=== PATIENT | male | born 1975 | race Caucasian/White ===

== ENCOUNTER 2016-12-07 22:38 | Emergency (ER) | payer OTHER ==
[~2016-12-07] VITALS: Ht 167.6 cm; Wt 52.2 kg
[2016-12-07] MEDS ORDERED: ASPIRIN 81 MG TAB.CHEW PO ONE (23:00)
[2016-12-07] MEDS ORDERED: ASPIRIN 81 MG TAB.CHEW ONE (23:13)
[2016-12-07 23:29] LABS: CALCIUM 8.9 mg/dL (8.5-10.1); CREATININE 0.9 mg/dL (0.6-1.3); EOSINOPHILS # (AUTO) 0.2 K/uL (0.0-0.7); LYMPHOCYTES # (AUTO) 1.1 K/uL (20.0-40.0); MONOCYTES # (AUTO) 0.8 K/uL (2.0-10.0); POTASSIUM 3.6 mmol/L (3.5-5.1)
[2016-12-07] MEDS ORDERED: GUAIFENESIN/CODEINE 5 ML LIQUID UDC PO ONE (23:30)
[2016-12-07] MEDS ORDERED: ACETAMINOPHEN ES 500 MG TABLET PO ONE (23:30)
[2016-12-07 23:39] LABS: LYMPHOCYTES % (AUTO) 8.7 % (20.5-51.5)
[2016-12-07] MEDS ORDERED: GUAIFENESIN/CODEINE 5 ML LIQUID UDC ONE (23:39)
[2016-12-07] MEDS ORDERED: ACETAMINOPHEN ES 500 MG TABLET ONE (23:39)
[2016-12-07 23:40] LABS: BASOPHILS % (AUTO) 0.4 % (0.0-2.0); EOSINOPHILS % (AUTO) 1.6 % (0.0-7.0); HEMATOCRIT 36.7 % (36.7-47.1); HEMOGLOBIN 13.2 g/dL (12.5-16.3); MEAN CORPUSCULAR HEMOGLOBIN 34.5 uug (23.8-33.4); MEAN CORPUSCULAR HGB CONC 36 g/dL (32.5-36.3); MEAN CORPUSCULAR VOLUME 95.8 fL (73.0-96.2); MONOCYTES % (AUTO) 6.3 % (0.0-11.0); NEUTROPHILS # (AUTO) 10.3 K/uL (1.8-8.9); PLATELET COUNT (AUTO) 218 K/uL (152-348); RED BLOOD CELL COUNT(AUTO) 3.83 MIL/uL (4.06-5.63); RED CELL DISTRIBUTION WIDTH 11.9 % (12.1-16.2); WHITE BLOOD COUNT (AUTO) 12.4 K/uL (3.6-10.2)
[2016-12-07 23:42] LABS: ALBUMIN 3.7 g/dL (3.4-5.0); BILIRUBIN,DIRECT 0.2 mg/dL (0.0-0.2); TOTAL PROTEIN, SERUM 6.8 g/dL (6.4-8.2)
[2016-12-07 23:43] LABS: BAND % (MANUAL) 1 % (0-10); EOSINOPHILS % (MANUAL) 2 % (0-8); LYMPHOCYTES % (MANUAL) 7 % (20-40); MONOCYTES % (MANUAL) 8 % (2-10); NEUTROPHILS % (MANUAL) 82 % (42-75)
[2016-12-07 23:44] LABS: PLATELET ESTIMATE ADEQUATE
[2016-12-08] MEDS ORDERED: predniSONE 20 MG TABLET PO ONE (00:45)
[2016-12-08] MEDS ORDERED: IV NORMAL SALINE 1000 ML BAG IV ONE (00:45)
[2016-12-08] MEDS ORDERED: AZITHROMYCIN 250 MG TABLET PO ONE (00:45)
[2016-12-08] MEDS ORDERED: predniSONE 10 MG TABLET ONE (00:58)
[2016-12-08] MEDS ORDERED: predniSONE 50 MG TABLET ONE (00:58)
[2016-12-08] MEDS ORDERED: AZITHROMYCIN 250 MG TABLET ONE (00:58)
--- NOTE | 2016-12-08 02:42 | NUR ---
IV removed. Catheter intact and site benign. Pressure and 4x4 gauze applied to site. No bleeding noted.
[2016-12-08 02:45] VITALS: BP 107/75
--- NOTE | 2016-12-08 02:46 | NUR ---
Patient discharged to home in stable conditon with taking pt home. Written and verbal after care instructions given. Patient verbalizes understanding of instructions. Walked out of ER with steady gait
== END 2016-12-08 02:46 | disposition home or self-care (01) ==
LOC: ER 22:40
DX: R07.9 Chest pain, unspecified (principal); R05 Cough; J40 Bronchitis, not specified as acute or chronic
CPT/HCPCS: 36415; 70030-TC; 71010; 84703; 85025; 93005; A4663; J7030; J7512; Q0144